=== PATIENT | female | born 1990 | race Caucasian/White ===

== ENCOUNTER 2020-03-02 00:18 | Outpatient (CLI) | payer OTHER, SELFPAY ==
[2020-03-02 18:31] LABS: SARS-CoV-2 RNA PCR Negative
== END 2020-03-02 00:19 | disposition home or self-care (01) ==
LOC: ANHCOVIDDT 00:18
PROVIDERS: PCP Family Medicine; Visit Provider Otolaryngology
DX: Z01.812 Encounter for preprocedural laboratory examination (principal); Z11.59 Encounter for screening for other viral diseases
CPT/HCPCS: 87635; C9803; U0003

== ENCOUNTER 2020-03-05 01:51 | Day surgery (SDC) | payer OTHER, SELFPAY ==
[2020-02-21 14:53] VITALS: BMI 25.6
--- NOTE | 2020-03-04 07:45 | PM.HPGS ---
History of Present Illness History of Present Illness Consent: Risks, benefits, and alternatives have been discussed and questions answered. Patient agrees to proceed with procedure. Chief complaint: Hypertrophic Tonsils Narrative: Charlotte Duran is a 30 year old female as she snores and mouth breathes has recurring episodes of tonsillitis unresponsive to medical management Review of Systems Review of Systems: All systems reviewed & are unremarkable except as noted in HPI and below PMFSH Surgical History Surgical History (Updated 12/28/19 @ 11:04 by Ekaterina Meier) deliv NOS-unsp H/O tubal ligation H/O: hysterectomy Social History Social History Smoking status: Never smoker Second hand tobacco smoke exposure: Yes ( SMOKES IN HOUSE AND AROUND PT) Alcohol intake: former Substance use: former Substance use type: marijuana Last use: 09/2017 Spiritual care concerns: No Meds Home Medications and Allergies Home Medications Medication Instructions Recorded Confirmed Type ergocalciferol (vitamin D2) 1,250 mcg PO WEEKLY 02/21/20 02/21/20 History [Vitamin D2] Allergies Allergy/AdvReac Type Severity Reaction Status Date / Time latex Allergy Severe Swelling Verified 02/21/20 14:47 Assessment and Plan Additional Plan plan tonsillectomy
--- NOTE | 2020-03-04 17:00 | WPDANESEPP ---
Anes - Eval Pre Procedure Procedure: Operation Date: 03/05/20 07:45 Proposed Procedures p Tonsillectomy - Andrae Villatoro MD Date/Time: 03/04/20 17:00 Pre Op Diagnosis: Hypertrophic Tonsils Patient Data Age: 30 Gender: F Height: 5 ft 6 in Weight: 72 kg Allergies Allergy/AdvReac Type Severity Reaction Status Date / Time latex Allergy Severe Swelling Verified 02/21/20 14:47 Home Medications Medication Instructions Recorded Confirmed Type ergocalciferol (vitamin D2) 1,250 mcg PO WEEKLY 02/21/20 02/21/20 History [Vitamin D2] Patient hx anesthesia problems: none Family hx anesthesia problems: none PMFSH Past Medical History Medical History (Updated 03/04/20 @ 17:01 by Ray Deleon CRNA) Migraines Tonsil stone Tonsillitis and adenoiditis, chronic Surgical History Surgical History (Updated 12/28/19 @ 11:04 by Ekaterina Meier) deliv NOS-unsp H/O tubal ligation H/O: hysterectomy Social History Social History Smoking status: Never smoker Second hand tobacco smoke exposure: Yes ( SMOKES IN HOUSE AND AROUND PT) Alcohol intake: former Substance use: former Substance use type: marijuana Last use: 09/2017 Spiritual care concerns: No Exam Day of Procedure 03/04/20 17:00
[2020-03-05] VITALS (9 sets, daily range): BP systolic 103–129; BP diastolic 74–88; PULSE 62–87; RESP 10–16; TEMP 36.6–36.8; O2SAT 94–100
--- NOTE | 2020-03-05 06:09 | WPDHPUPDATE1 ---
History and Physical Update Update Date/Time: 03/05/20 06:09 History and Physical has been reviewed, including an updated exam of the patient. There are NO changes in the patient's condition. Risks, benefits, and alternatives have been discussed and questions answered. Patient agrees to proceed with procedure.
[2020-03-05] MEDS: LACTATED RINGERS 1,000 ML 30 ML IV CONT ×2 (06:18→08:10)
--- NOTE | 2020-03-05 07:05 | WPDANESEPPF ---
Anes - Initial Pre Proc Eval Procedure: Operation Date: 03/05/20 07:45 Proposed Procedures p Tonsillectomy - Andrae Villatoro MD Date/Time: 03/05/20 07:05 Surgeon: Andrae Villatoro MD Pre Op Diagnosis: Hypertrophic Tonsils Patient Data Age: 30 Gender: F Height: 5 ft 6 in Weight: 72 kg Allergies Allergy/AdvReac Type Severity Reaction Status Date / Time latex Allergy Severe Swelling Verified 03/05/20 07:05 Home Medications Medication Instructions Recorded Confirmed Type ergocalciferol (vitamin D2) 1,250 mcg PO WEEKLY 02/21/20 03/05/20 History [Vitamin D2] Patient hx anesthesia problems: none Family hx anesthesia problems: none [facility] Past Medical History Medical History (Updated 03/04/20 @ 17:01 by Ray Deleon CRNA) Migraines Tonsil stone Tonsillitis and adenoiditis, chronic Surgical History Surgical History deliv NOS-unsp H/O tubal ligation H/O: hysterectomy Social History Social History Smoking status: Never smoker Second hand tobacco smoke exposure: Yes ( SMOKES IN HOUSE AND AROUND PT) Alcohol intake: former Substance use: former Substance use type: marijuana Last use: 09/2017 Living arrangements: with family Spiritual care concerns: No Anes - Eval Final PreProcedure Day of Procedure 03/05/20 07:05 Patient weight: normal Heart: regular rate and rhythm Lungs: clear to auscultation Airway: Mallampati scale class II Neurological: alert and oriented ASA classification: II Emergent: no Anesthetic plan: proceed Anesthesia type and monitoring: general ETT and standard monitoring Informed Consent: The patient's anesthetic plan and its attendant risks and benefits were discussed with the patient/family/POA. Questions were solicited and answers provided to the satisfaction of the patient/family/POA.
--- NOTE | 2020-03-05 08:02 | PM.PROC ---
Procedure Note - Detailed Date of procedure: 03/05/20 Pre-op diagnosis: Hypertrophic Tonsils TONSILLECTOMY/ADENOIDECTOMY SURGERY POSTOPERATIVE DISCHARGE INSTRUCTIONS DR. DÍAZ [facility] This is an information sheet to tell you some things to expect and some things not to expect when you leave the hospital after having Tonsillectomy/Adenoidectomy surgery. Please follow any specific instructions Dr. Díaz has given you. 1. Diet You have received IV fluids during hospitalization, which will carry you through the next 24 to 48 hours. It should be no cause for alarm if you are not taking much liquid orally. Encourage yourself to drink liquids, but please avoid acidic liquids and hot liquids/food. Products such as orange juice or lemonade will sting and burn. Popsicles and cool liquids maybe better tolerated than thick liquids such as ice cream. Dairy product will have a tendency to make secretions thick. It is much more important that your child drink fluids than eat food. Do not be alarmed if you eat very little over the next several days. As long as you are drinking liquids, able to produce tears when crying and urinating, then adequate hydration is being maintained. Suggested foods are sherbet, Jell-O, broth, pudding, pureed vegetables, mashed potatoes..etc. No soda, potato chips, or any type of food that may scratch the throat is permitted. Do not expect to eat solid food for 7-8 days. As you begin to feel better, you may advance your diet as tolerated. 2. Nausea Nausea and vomiting can occur during the first evening as a result of having a general anesthetic. Giving pain medication or antibiotics on an empty stomach can make it worse. If you are not able to keep liquids down do not force them. Stop trying the liquids and try again in the morning. If you experience nausea and vomiting at that time, please call Dr. Díaz. 3. Pain Typically patients report that the pain builds up for the first few days and is the worst around the 5th day following tonsillectomy. The amount of discomfort usually lessens, then may increase again around day 7-10 after surgery, as some of the whitish tissue covering the tonsillectomy site falls off. After this, there is generally steady improvement with less discomfort. Complete healing of the operative area generally takes several weeks. An ice collar or cold compress to the neck are soothing and may be desired. It is very common for the ears to hurt during the healing process. Ear pain, at times, may be severe. This ear pain is actually referred pain from the healing throat and is general not a result of an ear infection. If there is no drainage from the ear, there is no cause for concern. There maybe some tongue or jaw pain experienced for a couple weeks. This is caused from the position of the mouth during surgery. 4. Medication For pain relief, please take pain medication as prescribed. If nausea should occur due to pain medication, you may take plain Tylenol elixir. Please stay away from aspirin and aspirin containing products for 2 weeks. 5. Appearance The throat will have a yellow to rodriguez-white appearance for 10-14 days. This is normal and should not cause alarm. 6. Bleeding Bleeding is a rare problem that can occur after tonsil and /or adenoid surgery. The chances of this happening are greatest during the first several hours after surgery and then between the fourth to tenth day afterwards. The normal appearance of the yellow to rodriguez-white appearance is the area where the tonsils were removed. It is normal for this material, similar to a ?scab? on a scrape, to break loose as the area heals. Occas
--- NOTE | 2020-03-05 09:23 | SUR.PHASEI ---
PT AWAKE. STATES PAIN MINIMAL NOW AT 1/10, READY TO HAVE A DRINK. MEETS ANES DISCHARGE CRITERIA.
== END 2020-03-05 09:54 | disposition home or self-care (01) ==
PROVIDERS: PCP Family Medicine; Visit Provider Otolaryngology
PROC: (CPT 42826; principal; 2020-03-05 07:45)
DX: J35.03 Chronic tonsillitis and adenoiditis (principal)
CPT/HCPCS: 42826; 88302; 88304; A9270; J0330; J1100; J2250; J2405; J2704; J3010; J7120